=== PATIENT | male | born 1970 | race Caucasian/White ===

== ENCOUNTER 2017-04-30 16:29 | Emergency (ER) | payer OTHER ==
[~2017-04-30] VITALS: Ht 182.9 cm; Wt 109.1 kg
[2017-04-30] MEDS ORDERED: BACITRACIN3.5 GM BOTH EYES (18:31)
[2017-04-30 18:49] VITALS: BP 110/79
== END 2017-04-30 19:00 | disposition home or self-care (01) ==
LOC: EME 16:29
DX: H57.13 Ocular pain, bilateral (principal); Z77.098 Contact with and (suspected) exposure to other hazardous, chiefly nonmedicinal, chemicals
CPT/HCPCS: 99281; 99284; J2270